=== PATIENT | female | born 1950 | race Native Hawaiian/Other Pacific Islander ===

== ENCOUNTER 2018-07-20 08:35 | Emergency (ER) | payer OTHER ==
[2018-07-20 08:43] VITALS: BMI 32.9
--- NOTE | 2018-07-20 09:02 | C.PDOC ---
History Of Present Illness 68 yr old female w/ hx of HTN p/w greg-umbilical abdominal pain x3d. Pt with daughter noted throbbing pain w/ development of hernia over the past 2-3 weeks with worsening throbbing pain x3d. No n/v or diarrhea or constipation. No fall or trauma. No fever, chills or night sweats. No RLQ pain or epigastric pain. No back pain or urinary complaints or vaginal d/c. No rash. No dark or bloody stool. No other complaints. Time Seen by Provider: 07/20/18 08:39 Chief Complaint (Nursing): Abdominal Pain Past Medical History Vital Signs: Last Vital Signs Temp 99.4 F 07/20/18 08:46 Pulse 99 H 07/20/18 08:46 Resp 20 07/20/18 08:46 BP 153/84 H 07/20/18 08:46 Pulse Ox 97 07/20/18 08:46 Primary Care Provider: Kemar Lenz - Medical History PMH: HTN Family History: States: Unknown Family Hx - Social History Hx Alcohol Use: No Hx Substance Use: No - Immunization History Hx Tetanus Toxoid Vaccination: No Hx Influenza Vaccination: Yes (2018) Hx Pneumococcal Vaccination: Yes (2018) Review Of Systems Constitutional: Negative for: Fever, Chills, Weakness Eyes: Negative for: Pain, Vision Change, Eyelid Inflammation ENT: Negative for: Ear Pain, Ear Discharge, Nose Pain, Nose Congestion, Mouth Pain, Throat Swelling Cardiovascular: Negative for: Chest Pain, Palpitations, Edema Respiratory: Negative for: Cough, Shortness of Breath, SOB with Excertion Gastrointestinal: Positive for: Abdominal Pain. Negative for: Nausea, Vomiting, Diarrhea, Constipation, Melena, Hematochezia, Hematemesis Genitourinary: Negative for: Dysuria, Frequency, Hematuria, Vaginal Discharge, Vaginal Bleeding Musculoskeletal: Negative for: Neck Pain, Shoulder Pain, Back Pain, Hand Pain Neurological: Negative for: Weakness, Numbness, Confusion, Headache Psych: Negative for: Anxiety, Depression Physical Exam - Physical Exam Appears: Well, No Acute Distress Skin: Normal Color, Warm, Dry Head: Atraumatic, Normacephalic Eye(s): bilateral: Normal Inspection, PERRL, EOMI Nose: Normal Oral Mucosa: Moist Tongue: Normal Appearing Teeth: Normal Dentition Throat: Normal, No Erythema, No Exudate Neck: Normal, Supple, Other (no meningeal signs) Cardiovascular: Rhythm Regular Respiratory: Normal Breath Sounds Gastrointestinal/Abdominal: Soft, No Tenderness, No Rebound, Hernia (umbilical hernia, easily reducible. no black / crepitus skin noted ) Back: Normal Inspection, No CVA Tenderness, No Vertebral Tenderness Extremity: Normal ROM ED Course And Treatment - Laboratory Results Result Diagrams: 07/20/18 09:43 07/20/18 09:43 O2 Sat by Pulse Oximetry: 97 Medical Decision Making Medical Decision Makin yr old female w/ hx of htn p/w periumbilical pain and umbilical hernia. TTP at hernia site without overlying skin changes. Easily reducible. Pt otherwise in NAD, no RLQ pain or epigatric or back pain. Pending imaging and labs. 1113 labs largely unremarkable no elevated lactic or wbc pt in nad pending CT 1315 fat containing ventral hernia on CT no sbo or signs of strangulation / incarceration abd pain greatly improved clear for d/c home with return indications and f/u pt agreeable to plan. Disposition - Disposition Referrals: Efren Baer MD [Staff Provider] - Kemar Lenz MD [Staff Provider] - [facility] [Outside] [facility] [Outside] [facility] [Outside] Disposition: HOME/ ROUTINE Disposition Time: 13:15 Condition: STABLE Additional Instructions: NELSON HEDRICK, thank you for letting us take care of you today. Your provider was Narinder Montes and you were treated for ABDOMINAL PAIN. The emergency medical care you received today was directed at your acute symptoms. If you were prescribed any medication, please fill it and take as directed. It may take several days for your symptoms to resolve. Return to the Emergency Department if your symptoms worsen, do not improve, or if you have any other problems. Please contact your doctor or call one of the physicians/clinics you have been referred to that are listed on the Patient Visit Information form that is included in your discharge packet. Bring any paperwork you were given at discharge with you along with any medications you are taking to your follow up visit. Our treatment cannot replace ongoing medical care by a primary care provider outside of the emergency department. Thank you for allowing the [facility] team to be part of your care today. If you had an X-Ray or CT scan: A Radiologist will review the ED reading if any change in treatment is needed we will contact you. If you had a blood, urine, or wound culture: It will take several days for the results, if any change in treatment is needed we will contact you. If you had an STI test: It will take 48 hours for the results. Please call after 1 week if you have not heard back. Instructions: Abdominal Hernia (DC) Forms: [employer] ([place]) - Clinical Impression Clinical Impression: Ventral hernia
[2018-07-20] MEDS ORDERED: Sodium Chloride 0.9% 1,000 ML IV SCH (09:15)
[2018-07-20] MEDS ORDERED: Iohexol 240 (50 ml) PO ONE (09:16)
[2018-07-20] MEDS ORDERED: Morphine 4 MG/ML VIAL ONE (09:22)
[2018-07-20] MEDS ORDERED: Iohexol 240 (50 ml) ONE (09:22)
[2018-07-20] MEDS ORDERED: Sodium Chloride 0.9% 1,000 ML ONE (09:22)
[2018-07-20 09:50] LABS: BASO # 0.1 K/uL (0.0-0.2); BASO % 0.8 % (0.0-2.0); EOS # 0.3 K/uL (0.0-0.7); EOS % 3.4 % (0.0-4.0); HEMOGLOBIN 13.8 g/dL (11.0-16.0); LYMPH # 2.1 K/uL (1.0-4.3); LYMPH % 28.4 % (20.0-40.0); MEAN CELL VOLUME 84.5 fL (81.0-99.0); MEAN CORPUSCULAR HEMOGLOBIN 29.3 pg (27.0-31.0); MEAN CORPUSCULAR HGB CONC 34.7 g/dL (33.0-37.0); MEAN PLATELET VOLUME 7.7 fL (7.2-11.7); MONO # 0.5 K/uL (0.0-0.8); MONO % 6.7 % (0.0-10.0); NEUT # 4.5 K/uL (1.8-7.0); NEUT % 60.7 % (50.0-75.0); NRBC % 0.1 % (0.0-2.0); RBC 4.72 Mil/uL (3.80-5.20); RED CELL DISTRIBUTION WIDTH 13.9 % (11.5-14.5); WHITE BLOOD COUNT 7.5 K/uL (4.8-10.8)
[2018-07-20 10:04] LABS: VENOUS BLOOD GAS BASE EXCESS 2.2 mmol/L (0.0-2.0); VENOUS BLOOD GAS PCO2 43 mmHg (40-60); VENOUS BLOOD GAS PO2 52 mm/Hg (30-55); VENOUS BLOOD PH 7.41 (7.32-7.43)
[2018-07-20 10:04] LABS: ALB/GLOB RATIO 1.3 (1.0-2.1); ALBUMIN 4.8 g/dL (3.5-5.0); ALT/SGPT 17 U/L (9-52); AST/SGOT 31 U/L (14-36); BLOOD UREA NITROGEN 13 mg/dL (7-17); CALCIUM 9.9 mg/dl (8.6-10.4); GFR NON-AFRICAN AMERICAN > 60; LIPASE 103 U/L (23-300)
[2018-07-20] MEDS ORDERED: Iohexol 350mg/ml 100 ML ONE (11:24)
--- NOTE | 2018-07-20 12:37 | CT ---
PROCEDURE: CT Abdomen and Pelvis with oral and IV contrast. HISTORY: greg-umbilical hernia COMPARISON: None available TECHNIQUE: Contiguous axial images of the abdomen and pelvis. Oral and IV contrast was administered. Coronal and Sagittal reformats generated and reviewed. Contrast dose: 100 mL Omnipaque 300 IV Radiation dose: Total exam DLP = 1057.71 mGy-cm. This CT exam was performed using one or more of the following dose reduction techniques: Automated exposure control, adjustment of the mA and/or kV according to patient size, and/or use of iterative reconstruction technique. FINDINGS: LOWER THORAX: Mild basilar atelectasis. No visible pleural effusion or pneumothorax. LIVER: Hypoattenuation of the liver compatible with hepatic steatosis. GALLBLADDER AND BILE DUCTS: Cholelithiasis. PANCREAS: Unremarkable. SPLEEN: Unremarkable. ADRENALS: Unremarkable. KIDNEYS AND URETERS: The kidneys enhance symmetrically. No hydronephrosis or obstructing renal calculus. Bilateral extra renal pelves. Too small to characterize renal hypodensities; statistically likely cysts. BLADDER: Distended urinary bladder appears otherwise grossly unremarkable. REPRODUCTIVE: Uterus is present. APPENDIX: The appendix appears within normal limits of caliber. No secondary signs of acute appendicitis. BOWEL: The stomach is nondistended. The bowel loops appear within normal limits of caliber without evidence of intestinal obstruction. PERITONEUM: No significant free fluid. No definite free air. LYMPH NODES: No bulky lymphadenopathy identified. VASCULATURE: No aortic aneurysm. No atherosclerotic calcification or mural plaque present. BONES: Severe scoliosis. Extensive multilevel degenerative changes. Osseous demineralization. OTHER FINDINGS: 2.9 cm fat containing ventral hernia. IMPRESSION: Mild basilar atelectasis. Hypoattenuation of the liver compatible with hepatic steatosis. Cholelithiasis. Bilateral extrarenal pelves. Too small to characterize renal hypodensities; statistically likely cysts. Distended urinary bladder appears otherwise grossly unremarkable. 2.9 cm fat containing ventral hernia. Additional incidental findings as above.
[2018-07-20 13:31] VITALS: BP 126/81; PULSE 74; RESP 18; TEMP 98.1
[2018-07-20 16:40] VITALS: O2SAT 97
== END 2018-07-20 13:31 | disposition home or self-care (01) ==
LOC: C.ER 08:35
DX: K43.9 Ventral hernia without obstruction or gangrene (principal)
CPT/HCPCS: 74177; 80053; 82803; 83690; 85025; 96361; 96374; 99284; J2270; J7030; Q9966; Q9967